=== PATIENT | female | born 1990 | race Two or more races ===

== ENCOUNTER 2024-09-18 16:52 | Emergency (ER) | payer OTHER ==
[~2024-09-18] VITALS: Ht 170.2 cm; Wt 113.4 kg
[2024-09-18 17:03] VITALS: BP 167/86; O2SAT 97
[2024-09-18] MEDS ORDERED: LABETALOL 31 MG/1 ML (17:03)
[2024-09-18] MEDS ORDERED: PRENATAL + DHA1 EAC1 (17:03)
[2024-09-18] MEDS ORDERED: HUMALOG100 UNIT/2 (17:03)
[2024-09-18] MEDS ORDERED: FAMOTIDINE/PF 20 MG/2 ML VIAL IV ONE (17:45)
[2024-09-18] MEDS ORDERED: ONDANSETRON HCL 2 MG/ML VIAL IV ONE (17:45)
[2024-09-18] MEDS ORDERED: 0.9 % SODIUM CHLORIDE 1,000 ML IV ONE (17:45)
[2024-09-18 18:22] LABS: HEMATOCRIT 38.4 % (36.0-45.00); MEAN CELL VOLUME 78.4 fL (80.00-100.00); MEAN CORPUSCULAR HEMOGLOBIN 26.6 pg (27.00-32.0); MEAN CORPUSCULAR HGB CONC 33.9 g/dl (32.0-36.0); PLATELET COUNT 273 K/uL (150-450)
[2024-09-18 18:50] LABS: PH,URINE 5.5 (5.0-8.0); URINE APPEARANCE Clear; URINE BILIRRUBIN Negative (NEGATIVE); URINE COLOR Yellow; URINE GLUCOSE Negative (NEGATIVE); URINE KETONE Negative (NEGATIVE); URINE LEUKOCYTE Negative; URINE NITRATE Negative; URINE PROTEIN Trace (NEGATIVE); URINE UROBILINOGEN 0.2 E.U./dl
[2024-09-18 18:53] LABS: URINE BACTERIA 699.1 uL (0.0-1933); URINE EPITHELIAL CELLS 32.7 uL (0.0-38.8); URINE RBC 13.1 uL (0.0-20.8); URINE WBC 11.9 uL (0.0-23.2)
[2024-09-18 18:57] LABS: URINE BLOOD TRACES
[2024-09-18 19:15] LABS: ALBUMIN 3.4 gm/dL (3.4-5.0); BILIRUBIN TOTAL 0.18 mg/dL (0.3-1.2); CALCIUM 9.2 mg/dL (8.5-10.1); CREATININE SERUM 0.79 mg/dL (0.55-1.02); GFR 83.31; GLOBULINA 4.4 G/DL (2.4-3.5); POTASSIUM 3.84 mEq/L (3.5-5.1); TOTAL PROTEIN 7.8 gm/dL (6.4-8.2)
[2024-09-18] MEDS ORDERED: ZYRTEC10 MG PO (21:19)
== END 2024-09-18 21:44 | disposition home or self-care (01) ==
LOC: ER 16:53
PROVIDERS: General Practice
DX: R53.81 Other malaise (principal); J00 Acute nasopharyngitis [common cold]; Z20.822 Contact with and (suspected) exposure to COVID-19; I10 Essential (primary) hypertension; E11.9 Type 2 diabetes mellitus without complications; Z79.4 Long term (current) use of insulin